=== PATIENT | male | born 1980 | race Caucasian/White ===

== ENCOUNTER 2021-04-12 21:11 | Emergency (ER) | payer OTHER ==
[~2021-04-12] VITALS: Ht 167.6 cm; Wt 61.2 kg
--- NOTE | ~2021-04-12 | EMS ---
[address] [address] EMS Patient Care Report Name: KELLI FERNANDEZ Room #: DEP MARTHA Knowles#: [id number] Admission: 04/12/21 Attend Phys: Discharge: 04/12/21 Date of : 78 Report #: [id number] THIS REPORT FOR: //name// Report Transmitted: 04/13/2021 02:22 EMS Care Summary [place] [place] Incident [id number] @ 04/12/2021 20:34 Incident Location [address] [place], [place] [id number] Patient KELLI FERNANDEZ Male, 40 Years 1980 Patient Address [id number] [place] [id number] Patient History Alcohol Abuse,None Reported, Patient Allergies No known allergies, Patient Medications None Reported, Chief Complaint Back Pain Disposition Transported No Lights/[place] Reason Unknown Problem/Person Down Transported To [facility] Narrative Upon EMS arrival, patient was found on scene. Patient stated that he had back pain. Patient stated that he did not fall. [facility] [address] [place] [address] EMS Patient Care Report Name: KELLI FERNANDEZ Room #: DEP [facility]#: [id number] Admission: 04/12/21 Attend Phys: Discharge: 04/12/21 Date of : 78 Report #: [id number] Patient stated that he had been drinking. Patient had no other complaints. Patient vitals were assessed. Patient was monitored in route. Patient was reassessed in route. Patient was transferred from the stretcher to the hospital bed. Patient care was transferred from EMS to the facility nurse. EMS left the scene. EMS returned to service. Initial Vitals @20:52P: 93,R: 18,BP: 134/88,Pain: 0/10,GCS: 15,SpO2: 97,Revised Trauma: 12, @20:57P: 87,R: 18,BP: 127/87,Pain: 4/10,GCS: 15,Glucose: 80,SpO2: 97,Revised Trauma: 12, Assessments @20:50MENTAL:No Abnormalities,SKIN:HEENT:LUNG SOUNDS:ABDOMEN:PELVIS//GI:EXTREMITIES:PULSE:NEURO:No Abnormalities, Impression Behavioral/psychiatric episode Procedures @20:50ALS AssessmentResponse: UnchangedSucceeded Timeline 20:31,Call Received 20:31,Dispatch Notified 20:34,Dispatched 20:36,En Route 20:46,On Scene 20:50,At Patient 20:50,ALS Assessment,Response: UnchangedSucceeded, 20:52,BP: 134/88 M,PULSE: 93,RR: 18 R,SPO2: 97 Ox,ETCO2: ,BG: ,PAIN: 0,GCS: 15, 20:57,BP: 127/87 M,PULSE: 87,RR: 18 R,SPO2: 97 Ox,ETCO2: ,B,PAIN: 4,GCS: 15, 20:58,Depart Scene 21:08,At Destination 21:29,Call Closed Disclaimer v1.1 Copyright 2020 [employer] This EMS Care Summary contains data elements from the applicable legal record (which may be displayed differently). It is designed to provide pertinent information for the following purposes: continuity of care, clinical quality, and state data reporting. The complete legal record is available to ED staff [address] [address] EMS Patient Care Report Name: KELLI FERNANDEZ Room #: DEP MARTHA Knowles#: [id number] Admission: 04/12/21 Attend Phys: Discharge: 04/12/21 Date of : 78 Report #: [id number] and administrators of the receiving hospital in [employer] Patient Tracker. All data is provided "as is."
[2021-04-12 21:44] LABS: BASOPHILS 1.9 % (0.0-2.0); EOSINOPHILS 0.9 % (0.0-3.0); HEMATOCRIT 36.3 % (42.0-52.0); HEMOGLOBIN 12.8 gm/dL (14.0-18.0); LYMPHOCYTES 34.8 % (24.0-44.0); MCH 32.4 pg (26.0-34.0); MCHC 35.3 g/dL (28.0-37.0); MCV 91.8 fL (80.0-100.0); MONOCYTES 11.6 % (1.0-8.0); PLATELET COUNT 225 thou/uL (150-400); POLYS 50.8 % (36.0-66.0); RBC 3.95 mil/uL (4.50-6.00); RDW 14.2 % (10.5-14.5); WBC 3.9 thou/uL (4.0-11.0)
[2021-04-12 21:50] LABS: CALCIUM 7.9 mg/dL (8.5-10.1); CREATININE 0.8 mg/dL (0.7-1.3); POTASSIUM 3.7 mmol/L (3.5-5.1)
[2021-04-12 21:57] LABS: ALBUMIN 3.4 g/dL (3.4-5.0); TOTAL BILIRUBIN 0.4 mg/dL (0.2-1.0); TOTAL PROTEIN 6.6 g/dL (6.4-8.2)
[2021-04-12 23:31] VITALS: BP 118/83
== END 2021-04-12 23:48 | disposition home or self-care (01) ==
LOC: ER 21:11
PROVIDERS: Physician Assistant
DX: F10.129 Alcohol abuse with intoxication, unspecified (principal); M54.5 Low back pain; Y90.9 Presence of alcohol in blood, level not specified